=== PATIENT | female | born 2000 | race Two or more races ===

== ENCOUNTER 2023-03-16 17:18 | Emergency (ER) | payer OTHER ==
[~2023-03-16] VITALS: Ht 162.6 cm; Wt 83.9 kg
== END 2023-03-16 23:34 | disposition home or self-care (01) ==
LOC: ER 17:18
DX: O20.8 Other hemorrhage in early pregnancy (principal); Z3A.17 17 weeks gestation of pregnancy; Z88.6 Allergy status to analgesic agent

== ENCOUNTER 2023-04-01 11:34 | Outpatient (CLI) | payer OTHER | END 2023-04-01 13:24 | disposition home or self-care (01) | LOC: PRENATAL 11:34 | PROVIDERS: ATTEND Obstetrics & Gynecology Maternal & Fetal Medicine | DX: O35.9XX0 Maternal care for (suspected) fetal abnormality and damage, unspecified, not applicable or unspecified (principal); O35.3XX0 Maternal care for (suspected) damage to fetus from viral disease in mother, not applicable or unspecified; Z3A.20 20 weeks gestation of pregnancy ==

== ENCOUNTER 2023-08-01 21:57 | Inpatient (IN) | payer OTHER ==
[~2023-08-01] VITALS: Ht 162.6 cm; Wt 90.7 kg
[2023-08-01] MEDS ORDERED: PRENATAL TABLE1 EAC1 (22:46)
[2023-08-02 00:14] LABS: HEMATOCRIT 28.2 % (36.0-45.00); MEAN CELL VOLUME 69.9 fL (80.00-100.00); MEAN CORPUSCULAR HEMOGLOBIN 22.2 pg (27.00-32.0); PH,URINE 6.5 (5.0-8.0); PLATELET COUNT 275 K/uL (150-450); RED BLOOD COUNT 4.04 M/uL (4.00-6.00); RED CELL DISTRIBUTION WIDTH 16.5 % (11.5-14.5); URINE APPEARANCE Cloudy; URINE BILIRRUBIN Negative (NEGATIVE); URINE BLOOD Small; URINE COLOR Yellow; URINE GLUCOSE Negative (NEGATIVE); URINE LEUKOCYTE Moderate; URINE NITRATE Negative; URINE PROTEIN 30 (NEGATIVE)
[2023-08-02 00:15] LABS: URINE EPITHELIAL CELLS 66.4 uL (0.0-38.8); URINE RBC 70.5 uL (0.0-20.8); URINE WBC 133.4 uL (0.0-23.2)
[2023-08-02 16:04] LABS: ABG PH 7.353 (7.35-7.45); ABG pCO2 37.9 mmHg (35-45)
[2023-08-02 16:05] LABS: ABG PO2 37.3 mmHg (80-100); BASE EXCESS -4.4 mmol/l; BICARBONATE 20.6 mmol/l (23-25); Tco2 21.8 mmol/l; o2 21 %
[2023-08-02 20:16] LABS: HEMATOCRIT 29.6 % (36.0-45.00); HEMOGLOBIN 9.7 g/dL (12.0-15.00); MEAN CORPUSCULAR HEMOGLOBIN 22.9 pg (27.00-32.0); MEAN CORPUSCULAR HGB CONC 32.8 g/dl (32.0-36.0); PLATELET COUNT 267 K/uL (150-450); RED BLOOD COUNT 4.23 M/uL (4.00-6.00); RED CELL DISTRIBUTION WIDTH 16.8 % (11.5-14.5)
== END 2023-08-04 13:07 | disposition home or self-care (01) | DRG 807 ==
LOC: OBS/DEL 21:57 → LDR 08-02 07:41 → OB/GYN 08-02 07:41
PROVIDERS: ADMIT Obstetrics & Gynecology; ATTEND Obstetrics & Gynecology
PROC: 10E0XZZ Delivery of Products of Conception, External Approach (ICD-10-PCS; principal; 2023-08-02)
PROC: 0HQ9XZZ Repair Perineum Skin, External Approach (ICD-10-PCS; 2023-08-02)
PROC: 4A1HXCZ Monitoring of Products of Conception, Cardiac Rate, External Approach (ICD-10-PCS; 2023-08-02)
DX: O70.0 First degree perineal laceration during delivery (principal); Z37.0 Single live birth; O42.12 Full-term premature rupture of membranes, onset of labor more than 24 hours following rupture; Z3A.37 37 weeks gestation of pregnancy; Z20.822 Contact with and (suspected) exposure to COVID-19